=== PATIENT | female | born 1955 | race Two or more races ===

== ENCOUNTER 2018-05-13 10:06 | Emergency (ER) | payer MEDICAID ==
[~2018-05-13] VITALS: Ht 160 cm; Wt 67.9 kg
[2018-05-13 10:11] VITALS: BP 160/99
== END 2018-05-13 11:07 | disposition home or self-care (01) ==
LOC: ED 11:01
DX: R09.81 Nasal congestion (principal); B95.8 Unspecified staphylococcus as the cause of diseases classified elsewhere; L40.9 Psoriasis, unspecified; R51 Headache; Z88.5 Allergy status to narcotic agent
CPT/HCPCS: 99283

== ENCOUNTER 2019-03-04 12:53 | Emergency (ER) | payer OTHER ==
[~2019-03-04] VITALS: Ht 162.6 cm; Wt 75.0 kg
[2019-03-04] MEDS ORDERED: DIPH,PERTUSS(ACELL),TET VAC/PF 0.5 ML IM-VACC ONE (13:30)
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
--- NOTE | 2019-03-04 15:37 | NUR ---
Patient/Caregiver given discharge instructions and they have confirmed that they understand the instructions. Patient ambulatory with steady gait.
[2019-03-04 15:38] VITALS: BP 162/105
== END 2019-03-04 15:39 | disposition home or self-care (01) ==
LOC: ED 15:33
DX: S16.1XXA Strain of muscle, fascia and tendon at neck level, initial encounter (principal); S39.012A Strain of muscle, fascia and tendon of lower back, initial encounter; S29.012A Strain of muscle and tendon of back wall of thorax, initial encounter; M47.892 Other spondylosis, cervical region; S20.311A Abrasion of right front wall of thorax, initial encounter; M48.02 Spinal stenosis, cervical region; M51.34 Other intervertebral disc degeneration, thoracic region; F17.200 Nicotine dependence, unspecified, uncomplicated; V49.59XA Passenger injured in collision with other motor vehicles in traffic accident, initial encounter; Y93.89 Activity, other specified; Y92.89 Other specified places as the place of occurrence of the external cause; Y99.8 Other external cause status
CPT/HCPCS: 70450; 72072; 72110; 72125; 99284